=== PATIENT | female | born 1950 ===

== ENCOUNTER 2017-06-03 12:29 | Emergency (ER) | payer MEDICARE ==
[2017-06-03 12:42] VITALS: TEMP 97.8; O2SAT 98
[2017-06-03 12:45] VITALS: RESP 18
--- NOTE | 2017-06-03 13:03 | ED PDOC ---
Arrival/HPI - General Chief Complaint: Lower Extremity Problem/Injury Time Seen by Provider: 06/03/17 13:01 Historian: Patient - History of Present Illness Narrative History of Present Illness (Text): 06/03/17 13:03 This 67 yo female with pmh dm, presents to this ED c/o left calf pain x 2 weeks. Patient also stated a small abscess left calf x 7 days ago. Denies other somatic complains. Time/Duration: Other (see hpi) Context: Home Past Medical History - Provider Review Nursing Documentation Reviewed: Yes - Cardiac Hx Cardiac Disorders: Yes - Pulmonary Hx Respiratory Disorders: No - Neurological Hx Neurological Disorder: No - HEENT Hx HEENT Disorder: No - Renal Hx Renal Disorder: No - Endocrine/Metabolic Hx Endocrine Disorders: Yes Hx Diabetes Mellitus Type 2: Yes - Hematological/Oncological Hx Blood Disorders: No - Integumentary Hx Dermatological Disorder: No - Musculoskeletal/Rheumatological Hx Osteoporosis: Yes - Gastrointestinal Hx Gastrointestinal Disorders: No - Genitourinary/Gynecological Hx Genitourinary Disorders: No - Psychiatric Hx Psychophysiologic Disorder: No Hx Substance Use: No - Surgical History Hx Tubal Ligation: Yes Family/Social History - Physician Review Nursing Documentation Reviewed: Yes Family/Social History: Other (noncontributory) Smoking Status: Never Smoked Hx Alcohol Use: No Hx Substance Use: No Allergies/Home Meds Allergies/Adverse Reactions: Allergies No Known Allergies Allergy (Verified 06/03/17 12:34) Home Medications: Home Meds Medication Instructions Recorded Confirmed Alendronate [Fosamax] 70 mg PO DAILY 06/03/17 06/03/17 Alogliptin Mian/Metformin HCl 1 tab PO BID 06/03/17 06/03/17 [Kazano 12.5-1,000 mg Tablet] Aspirin [Adult Low Dose Aspirin EC] 1 tab PO DAILY 06/03/17 06/03/17 Cholecalciferol (Vitamin D3) 1 tab PO DAILY 06/03/17 06/03/17 [Vitamin D3] Pioglitazone [Actos] 45 mg PO DAILY 06/03/17 06/03/17 Simvastatin [Zocor] 40 mg PO DAILY 06/03/17 06/03/17 Review of Systems - Review of Systems Constitutional: Normal. absent: Fatigue, Weight Change, Fevers Eyes: Normal ENT: Normal Respiratory: Normal Cardiovascular: Normal Gastrointestinal: Normal Genitourinary Female: Normal Musculoskeletal: Normal Skin: Cellulitis Neurological: Normal Endocrine: Normal Hemo/Lymphatic: Normal Psychiatric: Normal Physical Exam Vital Signs Temp Pulse Resp BP Pulse Ox 06/03/17 15:11 75 18 138/78 98 06/03/17 12:45 97.8 F 77 18 144/87 98 06/03/17 12:37 97.8 F 77 16 144/87 98 Temperature: Afebrile Blood Pressure: Normal Pulse: Regular Respiratory Rate: Normal Appearance: Positive for: Well-Appearing, Non-Toxic, Comfortable Pain Distress: None Mental Status: Positive for: Alert and Oriented X 3 - Systems Exam Head: Present: Atraumatic, Normocephalic Pupils: Present: PERRL Extroacular Muscles: Present: EOMI Conjunctiva: Present: Normal Mouth: Present: Moist Mucous Membranes Neck: Present: Normal Range of Motion Respiratory/Chest: Present: Clear to Auscultation, Good Air Exchange. No: Respiratory Distress, Accessory Muscle Use Cardiovascular: Present: Regular Rate and Rhythm, Normal S1, S2. No: Murmurs Abdomen: Present: Normal Bowel Sounds. No: Tenderness, Distention, Peritoneal Signs Back: Present: Normal Inspection Upper Extremity: Present: Normal Inspection, Normal ROM. No: Cyanosis, Edema Lower Extremity: Present: CALF TENDERNESS, NORMAL PULSES, Normal ROM, Neurovascularly Intact, Capillary Refill < 2 s, Other ((+) 6 mm vesicular like lesion left calf area. No streaking erythema, draingae, or induration). No: Edema, Cyanosis, Gino's Sign, Swelling, Erythema, Temperature Abnormalties Neurological: Present: GCS=15, CN II-XII Intact, Speech Normal, Normal Sensory Function, Normal Cerebellar Funct, Gait Normal, Memory Normal Skin: Present: Warm, Dry, Normal Color. No: Rashes Psychiatric: Present: Alert, Oriented x 3, Normal Insight, Normal Concentration Medical Decision Making ED Course and Treatment: 06/03/17 15:32 Re-evaluation. Patient feels better. Discussed results and plan with patient who expresses understanding. All questions answered and there is agreement with the plan to discharge home with instructions. Patient stable for discharge. Return if symptoms persist or worsen. Patient was recommended to f/u pmd in 1-2 days. To return to emergency department if patient is not able to see her pmd. Return sooner if symptoms worsen. Apply warmth compress 3-4 times daily. Patient understood plan. Re-evaluation Time: 15:31 Reassessment Condition: Re-examined, Improved - RAD Interpretation Narrative RAD Interpretations (Text): 06/03/17 15:32 Venous Doppler : No DVT as per Ultrasound report Radiology Orders: 06/03/17 13:01 DUPLEX LOWER EXTRM VEIN LEFT [US] Stat - Medication Orders Current Medication Orders: Discontinued Medications Cephalexin Monohydrate (Keflex) 500 mg PO STAT STA PRN Reason: Protocol Stop: 06/03/17 15:31 Last Admin: 06/03/17 15:38 Dose: 500 mg Trimethoprim/Sulfamethoxazole (Bactrim Ds Tab) 1 tab PO STAT STA PRN Reason: Protocol Stop: 06/03/17 15:30 Last Admin: 06/03/17 15:37 Dose: 1 tab Disposition/Present on Arrival - Present on Arrival Any Indicators Present on Arrival: No History of DVT/PE: No History of Uncontrolled Diabetes: No Urinary Catheter: No History of Decub. Ulcer: No History Surgical Site Infection Following: None - Disposition Have Diagnosis and Disposition been Completed?: Yes Diagnosis: Abscess, Cellulitis Disposition: HOME/ ROUTINE Disposition Time: 15:32 Patient Plan: Discharge Condition: GOOD Discharge Instructions (ExitCare): Abscess (ED), Cellulitis (ED) Additional Instructions: call private doctor for follow up visit in 1-2 days. Apply a warmth compress 3 -4 times a day. take medication as instructed. Return to emergency if infection worsen. Clean wound with soap and water daily, and apply Neosporin with band aid. Return to emergency room if you are not able to see your doctor in 2 days. Prescriptions: Cephalexin [Keflex] 500 mg PO QID #28 capsule Sulfamethoxazole/Trimethoprim [Bactrim DS 800 mg-160 mg] 1 tab PO BID #14 tab Referrals: Tani More MD [Staff Provider] - Follow up with primary Forms: [employer] ([place])
[2017-06-03 15:12] VITALS: BP 138/78; PULSE 75
[2017-06-03] MEDS ORDERED: Tmp-Smz 800 mg-160 mg DS Tab PO STA (15:29)
--- NOTE | 2017-06-04 12:19 | US ---
PROCEDURE: Left lower extremity venous US HISTORY: Leg pain and swelling. Evaluate for DVT. PHYSICIAN(S): Chicho Kwong MD. TECHNIQUE: Duplex sonography and color-flow Doppler with graded compression were used to evaluate the deep venous system of the left lower extremity. FINDINGS: The visualized deep venous system of the left lower extremity is sonographically normal and compressible. Normal wave forms and augmentation are seen. There is no sonographic evidence for deep venous thrombosis in the visualized segments of the left lower extremity. IMPRESSION: 1. No sonographic evidence for deep venous thrombosis in the visualized segments of the left lower extremity.
== END 2017-06-03 15:49 | disposition home or self-care (01) ==
LOC: ED 12:29
DX: L02.416 Cutaneous abscess of left lower limb (principal)

== ENCOUNTER 2018-10-18 09:18 | Outpatient (CLI) | payer MEDICARE | END 2018-10-18 09:19 | disposition home or self-care (01) | LOC: LAB 09:18 ==

== ENCOUNTER 2018-10-26 08:53 | Outpatient (CLI) | payer MEDICARE | END 2018-10-26 08:54 | disposition home or self-care (01) | LOC: RAD 08:53 ==